=== PATIENT | male | born 1960 | race Caucasian/White ===

== ENCOUNTER 2016-05-23 07:21 | Day surgery (SDC) | payer MEDICAID ==
[2016-05-23 07:56] LABS: HEMOGLOBIN 13.1 g/dL (14.1-18.0); LYMPH # 1.6 K/mm3 (0.7-4.5); LYMPH % 33.4 % (10-50)
[2016-05-23 08:01] LABS: BUN 9 mg/dL (7-18)
[2016-05-23 08:05] LABS: GFR (ESTIMATED) 88 ML/MIN (>60)
--- NOTE | 2016-05-23 11:21 | RADIOLOGY REPORT PS360 ---
CARDIAC CATHETERIZATION DATE OF CATHETERIZATION:05/23/2016 10:42 AM PROCEDURES: 1. Left heart catheterization 2. Left ventriculogram 3. Selective coronary angiogram 4. Drug-eluting stent deployment to the proximal posterior descending artery off the dominant right coronary artery INDICATION FOR TEST: 1. Class IV angina pectoris despite maximal medical management 2. Coronary artery disease Informed consent was obtained prior to the procedure. COMPLICATIONS: None ESTIMATED BLOOD LOSS: Less than 10 ml. TECHNIQUE: One percent lidocaine used to anesthetize the right anterior aspect of the wrist. The right radial artery was accessed via the Seldinger technique. A 6 [place] sheath was placed in the right radial artery. 2.5 mg of verapamil and 800 mcg of nitroglycerin were given through the arterial sheath. The Alena catheter was also used to perform left heart catheterization and left ventriculography. At the end of the diagnostic procedure 11,000 units of heparin was administered intravenously. Prior to wire manipulation the ACT measured 335 seconds. An Akari right guide catheter was used intubate the right coronary artery and a BMW wire was used to traverse the stenosis in the posterior descending artery. A 2 mm x 12 mm noncompliant balloon was taken to 16 abigail and then 20 abigail in order to reduce the stenosis in the posterior descending artery. Following this a 2.25 x 18 mm resolute stent was deployed at 14 abigail in the proximal posterior descending artery reducing the stenosis to less than 10%. 800 mcg of nitroglycerin was administered intracoronary and repeat angiography demonstrated wide patency of the posterior descending artery. There was a lesion distal to the stent however this vessel was 2 mm and less and I did not feel was appropriate for additional manipulation. Patient had sequential stenoses in the PDA and the most severe proximal stenosis was revascularized and I believe this provides a significant improvement in angina relief therefore I left the mid PDA alone as I felt that additional manipulation to dissect or close the artery distally. After achieving excellent angiographic results the apparatus was removed and a closing ACT was measured as 315 seconds. Patient had artery taken Plavix 75 mg a day prior to the diagnostic procedure which was his baseline daily medicine. ANGIOGRAPHIC RESULTS: 1. The left main artery has mid vessel and distal tendon 20% stenoses respectively 2. The left anterior descending artery has a very proximal eccentric 30% stenosis followed by luminal irregularities throughout the proximal and mid segment. Distally there is a long greater than 90% stenosis as the LAD wraps the apex. The stenotic area involves the LAD less than 1 mm diameter. The long greater than 90% stenotic zone is 40 mm and length. The first diagonal artery is a small vessel and has a proximal eccentric 70-80% stenosis while the second diagonal artery which is 1 mm in diameter has a long proximal 80-90% stenosis. 3. The circumflex artery is a nondominant yet still a large vessel and has a stent in the ostial proximal mid distal segment supplying a 3.5 mm obtuse marginal artery. This stent is widely patent with mild in-stent restenosis. The stents cross for 1 mm in diameter obtuse marginal arteries all of which have proximal phalanx but are widely patent 4. The right coronary artery is a large dominant vessel and has proximal 10-20% stenosis with a mid vessel eccentric 30% stenosis. Distally there are 30% stenoses. The posterior descending artery is a large and long branch and has a proximal eccentric 90% stenosis with a mid vessel 70-80% stenosis. The posterior lateral ventricular branch has proximal hazy eccentric 50% stenosis 5. The GOOD ventriculogram reveals normal 65% 6. The left ventricular end-diastolic pressure mildly elevated 15 mmHg IMPRESSION: 1. Coronary artery disease as described above most notable for persistent severe disease in the very distal LAD which is 2 small for percutaneous or surgical revascularization. 2. Severe disease in 2 relatively small first and second diagonal artery also 2 small for revascularization 3. Widely patent stent in the ostial proximal mid distal large nondominant circumflex artery 4. Severe proximal disease and moderate mid vessel disease in a large posterior descending artery off the dominant right coronary artery 5. Successful drug-eluting stent deployment to the severely diseased proximal posterior descending artery 6. Persistent moderate stenosis and a posterior descending artery too small for drug-eluting stenting 7. Normal ejection fraction 8. Mildly elevated LVEDP 9. Diffuse diabetic vasculopathy as described above PLAN: 1. Aspirin Plavix indefinitely 2. LDL less than 70 with high intensity stent 3. Patient requires much tighter control of his diabetes 4. I strongly encourage patient to undergo cardiac rehabilitation along with weight-loss an exercise program
[2016-05-23 15:25] VITALS: BP 157/100
== END 2016-05-23 15:00 | disposition home or self-care (01) ==
LOC: CATHLAB 07:21
PROVIDERS: Internal Medicine
PROC: B2111ZZ Fluoroscopy of Multiple Coronary Arteries using Low Osmolar Contrast (ICD-10-PCS; 2016-05-23)
PROC: B2151ZZ Fluoroscopy of Left Heart using Low Osmolar Contrast (ICD-10-PCS; 2016-05-23)
PROC: 027034Z Dilation of Coronary Artery, One Artery with Drug-eluting Intraluminal Device, Percutaneous Approach (ICD-10-PCS; 2016-05-23)
PROC: 4A023N7 Measurement of Cardiac Sampling and Pressure, Left Heart, Percutaneous Approach (ICD-10-PCS; principal; 2016-05-23 08:30)
DX: I25.119 Atherosclerotic heart disease of native coronary artery with unspecified angina pectoris (principal); Z95.818 Presence of other cardiac implants and grafts; E13.69 Other specified diabetes mellitus with other specified complication; I11.9 Hypertensive heart disease without heart failure; E78.5 Hyperlipidemia, unspecified
CPT/HCPCS: C1725; C1760; C1769; C1876; J1644; Q9967